=== PATIENT | male | born 1970 | race Caucasian/White ===

== ENCOUNTER 2023-02-20 10:20 | Outpatient (CLI) | payer BC, SELFPAY ==
[2023-02-20 14:03] LABS: SARS PCR* Negative SARS-CoV-2 (Negative)
== END 2023-02-20 10:21 | disposition home or self-care (01) ==
LOC: LONREF 10:21
PROVIDERS: PCP Family Medicine; Visit Provider Family Medicine
DX: R05.9 Cough, unspecified (principal)
CPT/HCPCS: 87635

== ENCOUNTER 2023-06-07 13:07 | Emergency (ER) | payer BC, SELFPAY ==
[2023-06-07 15:02] VITALS: BP 154/83; PULSE 79; RESP 18; TEMP 36; O2SAT 97; BMI 41.8
--- NOTE | 2023-06-07 16:32 | W.ED.CHARTNO ---
ED Chart Note Chart Note Details Date: 06/07/23 Details: Patient left without being seen by provider
== END 2023-06-07 15:16 | disposition home or self-care (01) ==
PROVIDERS: Emergency Provider Student in an Organized Health Care Education/Training Program; PCP Family Medicine
DX: Z53.21 Procedure and treatment not carried out due to patient leaving prior to being seen by health care provider (principal)

== ENCOUNTER 2023-07-15 15:25 | Outpatient (CLI) | payer BC, SELFPAY | END 2023-07-15 15:26 | disposition home or self-care (01) | PROVIDERS: PCP Family Medicine; Visit Provider Family Medicine | DX: E78.5 Hyperlipidemia, unspecified (principal); I10 Essential (primary) hypertension; D35.1 Benign neoplasm of parathyroid gland; Z12.5 Encounter for screening for malignant neoplasm of prostate | CPT/HCPCS: 80048; 80061; 82310; 83970; G0103 ==

== ENCOUNTER 2023-08-23 08:49 | Outpatient (CLI) | payer BC, SELFPAY ==
--- NOTE | 2023-08-23 10:08 | W.ANESCHARGE ---
Anesthesia Charges Start Date/Time Anesthesia Start Date: 08/23/23 Anesthesia Start Time: 09:43 Stop Date/Time Anesthesia Stop Date: 08/23/23 Anesthesia Stop Time: 10:04
--- NOTE | 2023-08-23 11:12 | W.ANESCHARGE ---
Anesthesia Charges Start Date/Time Anesthesia Start Date: 08/23/23 Anesthesia Start Time: 09:43 Stop Date/Time Anesthesia Stop Date: 08/23/23 Anesthesia Stop Time: 10:04
== END 2023-08-23 08:50 | disposition home or self-care (01) ==
LOC: OP CLINIC 08:52
PROVIDERS: PCP Family Medicine; Visit Provider Internal Medicine
DX: Z12.11 Encounter for screening for malignant neoplasm of colon (principal); K62.1 Rectal polyp; K57.30 Diverticulosis of large intestine without perforation or abscess without bleeding; Z86.010 Personal history of colon polyps
CPT/HCPCS: 00811; 45380; 88305; J2704

== ENCOUNTER 2024-06-23 20:11 | Outpatient (CLI) | payer BC, SELFPAY | END 2024-06-23 20:12 | disposition home or self-care (01) | LOC: SLEEP 20:13 | PROVIDERS: PCP Family Medicine; Visit Provider Nurse Practitioner Family | DX: G47.33 Obstructive sleep apnea (adult) (pediatric) (principal) | CPT/HCPCS: 95810 ==

== ENCOUNTER 2024-09-04 11:38 | Outpatient (CLI) | payer BC, SELFPAY | END 2024-09-04 11:39 | disposition home or self-care (01) | PROVIDERS: PCP Family Medicine; Visit Provider Family Medicine | DX: E78.2 Mixed hyperlipidemia (principal); I10 Essential (primary) hypertension; I25.10 Atherosclerotic heart disease of native coronary artery without angina pectoris; D35.1 Benign neoplasm of parathyroid gland | CPT/HCPCS: 80048; 80061; 83970 ==